=== PATIENT | female | born 1970 | race Hispanic/Latino ===

== ENCOUNTER 2020-10-27 11:00 | Day surgery (SDC) | payer BC ==
[2020-10-27] MEDS ORDERED: Ringers Lactate 1,000 ML IV ONE (12:20)
[2020-10-27 12:42] LABS: Specific Gravity >= 1.030 (1.005-1.030)
[2020-10-27] MEDS ORDERED: LIDOCAINE 1% W/EPI 1:100,000 MDV 20 ML VIAL ONE (12:49)
[2020-10-27] MEDS ORDERED: LIDOCAINE 1% MPF 5 ML VIAL ONE (13:27)
[2020-10-27] MEDS ORDERED: FENTANYL CITR 100 MCG/2 ML ONE ×2 (13:27→13:31)
[2020-10-27] MEDS ORDERED: MIDAZOLAM HCL 2 MG/2 ML INJ ONE ×2 (13:27→13:31)
[2020-10-27] MEDS ORDERED: propofoL 200 MG/20 ML VIAL IV ONE ×2 (13:27→13:30)
[2020-10-27] MEDS ORDERED: dexAMETHasone 10 MG/ML VIAL ONE ×2 (13:31→14:02)
[2020-10-27] MEDS ORDERED: KETOROLAC 30 MG/ML INJ ONE ×2 (13:31→14:02)
[2020-10-27] MEDS ORDERED: ONDANSETRON 4 MG/2 ML VIAL ONE ×2 (13:31→14:14)
[2020-10-27] MEDS ORDERED: LIDOCAINE 2% MPF 5 ML VIAL ONE (13:31)
[2020-10-27] MEDS ORDERED: LIDOCAINE 1% MPF 30 ML VIAL ONE (13:58)
[2020-10-27 15:13] VITALS: BP 118/61; TEMP 97.2
[2020-10-27] MEDS ORDERED: HYDROCODONE/APAP 5/325 MG TAB ONE (15:35)
[2020-10-27 16:15] VITALS: O2SAT 98
--- NOTE | 2020-10-27 19:43 | OP ---
Date of Procedure: 10/27/2020 Surgeon: Rosy Davis MD Preoperative Diagnosis: History of excessive menstruation, enlarged uterus, thickened endometrium, m orbid obesity. Postoperative Diagnosis: History of excessive menstruation, enlarged uterus, thickened endometrium, morbid obesity and cervical and endometrial polyps. Procedures Performed: Hysteroscopy, endometrial curettage, dilatation and curettage with polypectomy and then cervical polyp removal. Anesthesia: General with LMA. Specimens: Cervical polyp in a separate cup and endometrial curettings, polyp in another. Complications: No complications. Drains: No drains. Condition: Stable. Cervix was found to be high, sounding length was over 13 cm. There was a cervical polyp that was rabago ging that was removed separately. Then hysteroscopy was performed and posterior wall had polypoid en dometrium and a small polyp. All these were scraped and removed with the curette. Indication: The patient is a 50-year-old with history of heavy bleeding, irregular periods, stripe o f 15 mm, known leiomyomata. Plan was to perform a cervical polypectomy, D and C, hysteroscopy at the hospital. Her uterus had 2 fibroids 3.7 and 3.2 cm. Her CA-125 was 26 and she was found to have so me adnexal cysts. She also complained of lower back pain. Her primary care provider had diagnosed h er with the UTI at the time. However, her urine was negative in the office at preop and when she bro ught back another specimen later. So she was consented and taken to the OR. Preoperatively discusse d with the patient. Still has back pain. No acute lower urinary tract symptoms. Procedure In Detail: So she was consented, taken back to the OR, placed in a supine fashion on the o perating table. General anesthesia was given. She was placed in dorsal lithotomy position. Pelvic exam was performed. Speculum was placed to expose the cervix after prep x3 with Betadine was done on the vulva, vagina, and perineum. Then anterior lip held with 2 Allis clamps. Ring forceps was used to grasp the cervical polyp and with twisting the polyp was removed and handed out for pathology. T hen diagnostic SlimLine hysteroscope was used to perform hysteroscopy directly through the cervical c anal and uterine cavity was entered. Thickened posterior wall with polypoid endometrium was seen. A small polyp was noted as well in the posterior wall. Rest of the endometrial cavity was unremarkabl e. Once the scope was removed, the cervix was dilated to 20-English and curettage was performed with a #3 curette. Adequate amount of tissue was sampled and retrieved and this was handed out for perman ent pathology. All the instruments were removed. Instrument and sponge counts were correct. She wa s recovered from anesthesia and taken to PACU in a stable condition. Estimated blood loss was minima l. She is going to follow up with me. We will address her back issues if they are related to her gy necological issues. Otherwise, in the absence of urinary tract infection, I will defer the workup of the back pain to her primary care. JIM/ELLI Voice ID: [id number] Report ID: [id number]
== END 2020-10-27 16:00 | disposition home or self-care (01) ==
LOC: OR 11:00
PROVIDERS: ATTEND Obstetrics & Gynecology
PROC: 0UDB8ZX Extraction of Endometrium, Via Natural or Artificial Opening Endoscopic, Diagnostic (ICD-10-PCS; 2020-10-27)
PROC: 0UBC8ZX Excision of Cervix, Via Natural or Artificial Opening Endoscopic, Diagnostic (ICD-10-PCS; principal; 2020-10-27 13:00)
DX: N84.1 Polyp of cervix uteri (principal); N84.0 Polyp of corpus uteri; N92.1 Excessive and frequent menstruation with irregular cycle; D25.9 Leiomyoma of uterus, unspecified; N83.292 Other ovarian cyst, left side; R19.09 Other intra-abdominal and pelvic swelling, mass and lump; M54.5 Low back pain; Z20.822 Contact with and (suspected) exposure to COVID-19
CPT/HCPCS: 81025; 88305; 58558; U0003; J2704; J2250; J3010; J1100; J7120; J2405 ×2

== ENCOUNTER 2021-08-13 08:09 | Day surgery (SDC) | payer BC ==
[2021-08-13] MEDS ORDERED: NA CHLORIDE 0.9% 1,000 ML ONE (08:28)
[2021-08-13] MEDS ORDERED: propofoL 200 MG/20 ML VIAL IV ONE ×2 (10:10)
[2021-08-13] MEDS ORDERED: GLYCOPYRROLATE 0.2 MG/ML SYR ONE (10:10)
[2021-08-13] MEDS ORDERED: LIDOCAINE 1% MPF 30 ML VIAL ONE (10:10)
[2021-08-13] MEDS ORDERED: ONDANSETRON 4 MG/2 ML VIAL ONE (10:21)
--- NOTE | 2021-08-13 10:57 | ENDO RPT ---
[address], [address] COLONOSCOPY PROCEDURE REPORT EXAM DATE: 08/13/2021 PATIENT NAME: Bethanie Astorga MR #: [id number] BIRTHDATE: 1970 ATTENDING: Patricio Taylor DR STATUS: outpatient SUPERVISOR MECHANIC BOILERMAKING: Lisbet Winchester RN INDICATIONS: The patient is a 50 yr old Female here for a colonoscopy due to colon cancer screening PROCEDURE PERFORMED: Screening Colonoscopy and Colonoscopy MEDICATIONS: Per Anesthesia. ESTIMATED BLOOD LOSS: None CONSENT: The patient understands the risks and benefits of the procedure and understands that these risks include, but are not limited to: sedation, allergic reaction, infection, perforation and/or bleeding. Alternative means of evaluation and treatment include, among others: physical exam, x-rays, and/or surgical intervention. The patient elects to proceed with this endoscopic procedure. DESCRIPTION OF PROCEDURE: During intra-op preparation period all mechanical medical equipment was checked for proper function. Hand hygiene and appropriate measures for infection prevention was taken. Procedure, possible complications, alternatives including, but not limited to possibility of bleeding, perforation, tear, infection, sepsis, need for surgery, need for blood transfusion, were explained to the patient. After the risks, benefits and alternatives of the procedure were thoroughly explained, Informed consent was verified, confirmed and timeout was successfully executed by the treatment team. The patient was placed in the left lateral position. A digital rectal exam was performed and revealed internal hemorrhoids. After appropriate level of anesthesia, the scope was passed. The EC-[id number] ([id number]) endoscope was introduced through the anus and advanced to the cecum, which was identified by both the appendix and ileocecal valve. The quality of the prep was poor. The instrument was then slowly withdrawn as the colon was fully examined. Scope withdrawal time was 10 minutes. COLON FINDINGS: Small internal hemorrhoids were found. The colon mucosa was otherwise normal. Retroflexed views revealed no abnormalities. The scope was then completely withdrawn from the patient and the procedure terminated. ADVERSE EVENTS: There were no complications. IMPRESSIONS: 1. Small internal hemorrhoids 2. The colon mucosa was otherwise normal RECOMMENDATIONS: 1. avoid NSAIDS for 2 weeks 2. fiber rich diet 3. Monitor for any evidence of rectal bleeding. 4. yearly hemoccult starting in 4 years 5. yearly hemoquant 6. hemorrhoidal hygiene 7. increase dietary water RECALL: Return in 5 year(s) for Colonoscopy. Poor Prep Patricio Taylor DR eSigned: Patricio Taylor DR 08/13/2021 10:57 AM cc: CPT CODES: ICD9 CODES: PATIENT NAME: Bethanie AstorgaGasper MR#: [id number]
[2021-08-13 12:25] VITALS: BP 140/74; TEMP 98.4; O2SAT 100
== END 2021-08-13 11:45 | disposition home or self-care (01) ==
LOC: OR 08:09
PROVIDERS: ATTEND Surgery
PROC: 0DJD8ZZ Inspection of Lower Intestinal Tract, Via Natural or Artificial Opening Endoscopic (ICD-10-PCS; principal; 2021-08-13 08:45)
DX: Z12.11 Encounter for screening for malignant neoplasm of colon (principal); K64.8 Other hemorrhoids; Z20.822 Contact with and (suspected) exposure to COVID-19
CPT/HCPCS: 36415; 84703; 82947; 45378; U0003; J2704 ×2; J7030; J2405

== ENCOUNTER 2021-10-12 09:42 | Day surgery (SDC) | payer BC ==
[2021-10-06 13:53] LABS: Urine Appearance SL CLOUDY (Clear); Urine Bilirubin NEGATIVE (Negative); Urine Blood 3+ (Negative); Urine Color DK YELLOW (Yellow); Urine Glucose NEGATIVE (Negative); Urine Microscopic Reflex ORDER UMIC; Urine Protein 1+ (Negative); Urine Specific Gravity 1.025 (1.005-1.030); Urine Urobilinogen 0.2 mg/dL (0.2-1.0)
[2021-10-06 14:03] LABS: Absolute Lymphocytes (CBC) 2.4 K/uL (0.7-4.9); Hematocrit 28.7 % (36.0-45.0); Lymphocytes % 33.3 % (15.3-44.8); MPV 8.2 fL (7.6-11.3); RBC Red Blood Cell Count 3.76 M/uL (3.86-4.86)
[2021-10-06 14:06] LABS: Urine Bacteria 20-50 /HPF (<20); Urine RBC >50 /HPF (NONE SEEN)
[~2021-10-12 09:42] MED LIST: Ringers Lactate 1,000 ML IV SCH; SCOPOLAMINE HYDROBROMIDE PATCH TD SCH
[2021-10-12] MEDS ORDERED: NA CHLORIDE 0.9% 1,000 ML ONE ×3 (10:11→18:00)
[2021-10-12 10:19] LABS: Specific Gravity 1.025 (1.005-1.030)
[2021-10-12] MEDS ORDERED: SCOPOLAMINE HYDROBROMIDE PATCH TD ONE (10:42)
[2021-10-12] MEDS ORDERED: CEFAZOLIN/SWI 2gm 0 GM/0 ML SYR ONE (11:23)
[2021-10-12] MEDS ORDERED: DIAZEPAM 5 MG TABLET ONE (11:25)
[2021-10-12] MEDS ORDERED: CEFAZOLIN/SWI 2gm 2 GM/20 ML SYR ONE (11:27)
[2021-10-12] MEDS ORDERED: CEFAZOLIN SODIUM 1 GM/VIAL ONE (11:27)
[2021-10-12] MEDS ORDERED: KETAMINE HCL 500 MG/5 ML VIAL ONE (11:40)
[2021-10-12] MEDS ORDERED: FENTANYL CITR 250 MCG/5 ML ONE (11:41)
[2021-10-12] MEDS ORDERED: LIDOCAINE 1% MPF 5 ML VIAL ONE (11:41)
[2021-10-12] MEDS ORDERED: NS 0.9% VIAL 10 ML ONE (11:41)
[2021-10-12] MEDS ORDERED: MIDAZOLAM HCL 2 MG/2 ML INJ ONE (11:41)
[2021-10-12] MEDS ORDERED: propofoL 200 MG/20 ML VIAL IV ONE (11:41)
[2021-10-12] MEDS ORDERED: dexAMETHasone 10 MG/ML VIAL ONE (11:41)
[2021-10-12] MEDS ORDERED: ROCURONIUM 50 MG/5 ML VIAL IV ONE (11:42)
[2021-10-12] MEDS ORDERED: ONDANSETRON 4 MG/2 ML VIAL ONE ×2 (11:56→16:42)
[2021-10-12] MEDS ORDERED: EPHEDRINE SULF 50 MG/ML VIAL ONE (12:39)
[2021-10-12] MEDS: BUPIVACAINE 0.25% PF 10 ML VIAL ONE ×2 (12:41→12:45)
[2021-10-12] MEDS ORDERED: VECURONIUM 10 MG/VIAL IV ONE (13:55)
[2021-10-12] MEDS ORDERED: Phenylephrine HCl 10 MG/ML 1 ML VIAL ONE (14:09)
[2021-10-12] MEDS ORDERED: Ringers Lactate 1,000 ML IV ONE (14:29)
[2021-10-12] MEDS: Ringers Lactate 1,000 ML IV ONE ×2 (15:04→15:13)
[2021-10-12] MEDS ORDERED: MORPHINE 10 MG/ML VIAL ONE (15:14)
[2021-10-12] MEDS ORDERED: METHYLENE BLUE 0.5% 10 ML AMP ONE (15:50)
[2021-10-12] MEDS ORDERED: GLYCOPYRROLATE 0.2 MG/ML SYR ONE (15:56)
[2021-10-12] MEDS ORDERED: IBUPROFEN 200 MG PO PRN (15:58)
[2021-10-12] MEDS ORDERED: clonazePAM 0.5 MG TAB PO PRN (15:58)
[2021-10-12] MEDS ORDERED: PROMETHAZINE INJ 25 MG/ML AMP IV PRN (15:59)
[2021-10-12] MEDS ORDERED: HYDROCODONE/APAP 5/325 MG TAB PO PRN (15:59)
[2021-10-12] MEDS ORDERED: IBUPROFEN 200 MG TAB PO PRN (15:59)
[2021-10-12] MEDS ORDERED: MEPERIDINE HCL 25 MG/ML SYR IM PRN (15:59)
[2021-10-12] MEDS ORDERED: NEOSTIGMINE 1 MG/ML -5 ML ONE (16:01)
--- NOTE | 2021-10-12 16:07 | P.BOP ---
Preoperative diagnosis: AUB-L/O, LLQ pain Postoperative diagnosis: bilateral tubal endometriosis, left hydrosalpinx, bladder/ C.sX4 adhesions Primary procedure: TLH/BSO,vg morcellation,C/s scarLOAbladder adhesions,Endometriosis excision Secondary procedure: cystoscopy, guidewire on left insertion and removal Residential Subcontractor: Lolly Cobb Estimated blood loss: 100 Specimen: uterus tubes ovaries, endometriosis both peritubal areas Findings: scar omentum bladder, uterus, L hydrosalpinx, patent ureters, 5ports Anesthesia: General Complications: None Transferred to: Recovery Room Condition: Good
[2021-10-12] MEDS ORDERED: ALBUTEROL 2.5 MG/3 ML NEB SOL ONE (16:22)
[2021-10-12] MEDS ORDERED: MEPERIDINE HCL 25 MG/ML SYR ONE (16:42)
[2021-10-12 17:11] VITALS: O2SAT 100
[2021-10-12] MEDS ORDERED: HYDROCODONE/APAP 5/325 MG TAB ONE (18:42)
[2021-10-12 18:49] VITALS: BP 125/58; TEMP 97.7
[2021-10-12] MEDS ORDERED: METFORMIN ER 500 MG TAB PO SCH (21:00)
[2021-10-12] MEDS ORDERED: HOME MED 1 EA UNK (Dextroamphetamine/Amphetamine [Adderall 20 Mg Tablet] 20 MG Tablet) PO SCH (21:00)
[2021-10-13] MEDS ORDERED: HOME MED 1 EA UNK (Multivitamin [Multivitamin] Tablet) PO SCH (09:00)
[2021-10-13] MEDS ORDERED: HOME MED 1 EA UNK (Lisinopril/Hydrochlorothiazide [Lisinopril-Hctz 20-25 Mg Tab] Tablet) PO SCH (09:00)
[2021-10-13] MEDS ORDERED: MONTELUKAST 10 MG TAB PO SCH (09:00)
--- NOTE | 2021-10-14 07:03 | OP ---
Date of Procedure: 10/12/2021 Surgeon: Rosy Davis MD Legal Nurse Consultant: Lolly Morrell. Preoperative Diagnoses: AUB-L/O, left lower quadrant pain. Postoperative Diagnoses: AUB-L/O, left lower quadrant pain, bilateral tubal endometriosis, left hydr osalpinx, bladder and scar adhesions to very significant level. Procedures Performed: 1.Total laparoscopic hysterectomy, bilateral salpingo-oophorectomy, vaginal morcellation due to the size of the uterus. 2.Lysis of bladder and scar uterine adhesions to the anterior abdominal wall and endometrio tic adhesions of the tube and omentum. 3.Endometriosis excision. 4.Cystoscopy and guidewire insertion and removal on the left ureter. Anesthesia: General endotracheal. Estimated Blood Loss: 100. Urine Output: 400. Specimens: Uterus, tubes, ovaries, endometriosis with both paratubal areas. Complications: No complications. Drains: No drains. Condition: The patient's condition is stable. Findings: Scar of the omentum and the bladder to the anterior abdominal wall, omentum to the uterus as well as the anterior abdominal wall, and then bladder to lower segment of the uterus. Left hydros alpinx and endometriosis and endometrioma inside the tube and endometriotic implant in the paratubal area, which was excised along with the left tube and ovary. The patient was recovered from anesthesi a in the operating room and taken to the recovery room in stable condition. Indications: The patient is a 51-year-old female, presented a year ago with heavy bleeding, signific ant morbid obesity. No atypia or malignancy were seen after endometrial sampling. She was treated i n a conservative fashion, including using a Mirena IUD, which spontaneously was expelled. Her bleedi ng was uncontrolled. She has lost at least 35 pounds since kept it off. Despite this, th ere has been no change in her bleeding and her left lower quadrant pain was very bothersome, so she w as consented for the above procedures fully understanding that her 4 sections were high risk for surgery and her morbidity with her body mass index. Procedure In Detail: After informed consent was verified, 3 g of Ancef were given as she only had hi ves with penicillin. She tolerated the Ancef very well. She was placed in a supine fashion on the operating table. Gener al anesthesia was given. She was placed in dorsal lithotomy position. Pelvic exam was performed. U terus was found to be significantly enlarged and fairly . No adnexal masses were easily pa lpable. She definitely had a large posterior wall defect, however, no plans to address this at this time. After she was placed in dorsal lithotomy position, using Zheng stirrups, abdomen, vulva, vagina, and perineum were prepped and draped in a sterile fashion. A Payton was placed to drain the bladder and a ttached for retrograde filling. A large VCare introduced into the uterus and fixed in place. A 1 cm infraumbilical incision made with a scalpel using the open laparoscopy technique. Fascia was incised, tagged with 0 Vicryl sutures. Peritoneum entered sharply. S-retractors were placed and Has son introduced. After adequate insufflation, site of entry was checked, unremarkable. Upper abdomin al surface was unremarkable as well. The patient was placed in Trendelenburg. A 5 port in the left lower quadrant was placed after injecting with 0.25% Marcaine. The adhesions of the omentum to the a nterior abdominal wall, the uterus to the anterior abdominal wall were all taken down. This took at least 45 minutes of this case to get started, placing the ports, taking the adhesions down, and clear ing the uterus of all adhesions, taking the omental adhesions down as well as the adhesions to the le ft tube and ovary. A 10 suprapubic, 5 right lower quadrant and 5 left upper quadrant, ports were placed under direct vis ion. Since the height of the uterus was significantly elevated, the left upper quadrant port was significa ntly useful. The round ligament was taken down after the broad ligament was opened up and the bladde r flap was also connected after taking the adhesions down the way much right there on the bladder fla p. The round ligament was taken down. Then, the dissection was carried on the left lateral wall paralle l to the IP. The tubal dilation which almost appeared to be a paratubal cyst, but this actually a hy drosalpinx, was drained, has clear fluid in it. Then, the tube and the ovary were isolated on the pe dicle and taken down with the help of the LigaSure. Once these were done, the endometriosis was exci sed. The tube and ovary were from the uterus and they were tied with a 0 Vicryl loop tie a nd placed in the right lower quadrant. Endometriosis that was attached to the round ligament was also included by taking the round ligament freely laterally, so this could be included with the specimen. Then, the posterior part of the utero -ovarian ligament was taken out obviously and then the posterior broad ligament was dissected. Caref ully, the ureter was identified as well as the vessels on lateral aspect by dissecting the broad liga ment. Then, the peritoneum was taken down all the way to the area of the uterosacral on the posterio r cuff and the vessels were cauterized immediately lateral to the uterus, right on the wall of the ut erus, staying close to the wall. Dissection was performed on the opposite side, isolating the round ligament, opening up, taken down t he tube and handed off for permanent pathology. Then, utero-ovarian ligament was taken down. Then, the round ligament was taken down. The anterior broad ligament connected after taking down the adhes ions of the bladder from her scar to expose the anterior wall of the vagina and then, the bl adder was dissected down inferiorly by sharp dissection and bipolar cautery with the LigaSure. The a nterior cup was well visualized. The vessels were isolated. Posterior peritoneum taken down to the right uterosacral, then vessels were taken down in a systematic fashion using the LigaSure and the cu rved tip bipolar. Then, cardinal ligaments were taken down. Then, on the opposite side, went over t o take the vessels down. There was bleeding from the uterine vessels, which was then cauterized appr opriately in a timely fashion without allowing much bleeding. Then, the [place] bipolar was used to cauterize the lateral margin of the uterine artery, which had excellent hemostasis. After this was done, the cardinal ligaments were taken down. The cup was exposed. Then, circumferential colpotomy was performed with a monopolar hook blade and the specimen was detached. The specimen was retrieved vaginally using clamps, baby Conway, and a speculum. Using a Y ankauer suction to get the blood from the specimen. The specimen was morcellated with a 10 blade pro gressively till it had completely come out. Once it was handed out, vaginal closure was placed. After gloves and gowns were changed, restarted back at the abdominal level. Then, the vaginal cuff w as closed with simple 0 Vicryl sutures at both ends, tied lateral to the cuff, and then 3 figures-of- eight in the center with excellent position and closure including the distal uterosacral ligaments as best as possible. The ovary and the tube were removed before the 3 center stitches were placed. The right ovary was di ssected and isolated all the pedicle and removed. All the right ovary, left tube and ovary were all pulled out through the vaginal canal. Then, the 3 center sutures with [id number]-ez-qgqqo 0 Vicryl were done and then the closure wa s complete with excellent hemostasis. No evidence of electrical, mechanical, or thermal injury to th e ureters. Thorough irrigation and suction were performed. All pedicles hemostatic. All the trocar s removed under direct vision, injected with local at the umbilical site after the umbilical fascia w as closed with the help of 0 Vicryl sutures that were tagged on the sides, tied to each other. A kiera p stitch was placed in the suprapubic area as it was very difficult to get down that far down to clos e the fascia. All the skin incisions closed with the help of 3-0 chromic sutures and Steri-Strips placed. Cystoscopy performed with a 17-Wolof sheath, 30-degree lens, normal saline. Excellent jets of urine from the right ureteric orifice and the left was very sluggish, so a guidewire was placed to advance to 15 cm very easily. Then, as it was pulled out, there was excellent jet of urine from here. The patient had a urine output of 400 cc during the case. The bladder was then drained. The vagina was cleaned up. labia majora had a laceration at the time of retraction for vaginal morcellat ion. This was closed with the help of 4-0 chromic kzcgaa-rj-wdbkd stitch. Excellent hemostasis. Instrument, needle, and sponge counts x3 were correct at the end of the case. The patient tolerated the procedure well. She was recovered from anesthesia and taken to PACU in stable condition. All e procedure and findings were debriefed to the family, her daughter, her , and son. She has a followup appointment in 1 week. JIM/ELLI Voice ID: [id number] Report ID: [id number]
== END 2021-10-12 19:30 | disposition home or self-care (01) ==
LOC: OR 09:42
PROVIDERS: ATTEND Obstetrics & Gynecology
PROC: 0UT24ZZ Resection of Bilateral Ovaries, Percutaneous Endoscopic Approach (ICD-10-PCS; 2021-10-12)
PROC: 0UT74ZZ Resection of Bilateral Fallopian Tubes, Percutaneous Endoscopic Approach (ICD-10-PCS; 2021-10-12)
PROC: 0UB44ZZ Excision of Uterine Supporting Structure, Percutaneous Endoscopic Approach (ICD-10-PCS; 2021-10-12)
PROC: 0TNB4ZZ Release Bladder, Percutaneous Endoscopic Approach (ICD-10-PCS; 2021-10-12)
PROC: 0DNW4ZZ Release Peritoneum, Percutaneous Endoscopic Approach (ICD-10-PCS; 2021-10-12)
PROC: 0HQAXZZ Repair Inguinal Skin, External Approach (ICD-10-PCS; 2021-10-12)
PROC: 0UT94ZZ Resection of Uterus, Percutaneous Endoscopic Approach (ICD-10-PCS; principal; 2021-10-12 11:30)
DX: N92.1 Excessive and frequent menstruation with irregular cycle (principal); D25.9 Leiomyoma of uterus, unspecified; E11.9 Type 2 diabetes mellitus without complications; N39.3 Stress incontinence (female) (male); N83.292 Other ovarian cyst, left side; I10 Essential (primary) hypertension; N83.8 Other noninflammatory disorders of ovary, fallopian tube and broad ligament; N70.11 Chronic salpingitis; N88.8 Other specified noninflammatory disorders of cervix uteri; S31.41XA Laceration without foreign body of vagina and vulva, initial encounter; N99.71 Accidental puncture and laceration of a genitourinary system organ or structure during a genitourinary system procedure; Y93.89 Activity, other specified; Y92.234 Operating room of hospital as the place of occurrence of the external cause; Z20.822 Contact with and (suspected) exposure to COVID-19
CPT/HCPCS: 87088; 85025; 87086; 36415; 86900; 86850; 81025; 86901; 82947; 88307; 83036; 58573; 58662; 53899; 49329; 12001; U0003; J2704; J2370; J2250; J3010; J1100; J2175; J2710; J0690 ×2; J7120 ×2; J7030 ×3; J2405 ×2; 81003; 81015

== ENCOUNTER 2021-11-23 16:46 | Emergency (ER) | payer BC ==
--- OUTSIDE RECORDS SUMMARY | 2021-11-23 16:48 | XMS REPORT | Continuity of Care Document ---
:1970 Author Organization [facility] t Address [address] [place] [address] Dr. Espinosa [address] [place] [address] Care Team Providers Name Role Phone Leisa URRUTIA Attending Clinician Unavailable HENNY Attending Clinician Unavailable Elia LANIER, K.H. Attending Clinician Payers Payer Name Policy Type Policy Number Effective Date Expiration Date S [facility] [id number] 2017 00:00:00 Problems This patient has no known problems. Allergies, Adverse Reactions, Alerts Allergy Allergy Status Severity Reaction(s) Onset Inactive Treating Comm ents Source Name Type Date Date Clinician [facility] Active Hives [facility] 01-04 ity of 00:00: [address] Medications This patient has no known medications. Procedures This patient has no known procedures. Encounters Start End Encounter Admission Attending Care Care Encounter Source Date/Time Date/Time Type Type Clinicians Facility Department ID 2020-12-26 2020-12-26 Outpatient [facility] [id number] [facility]:15[id number] 2020-12-26 Outpatient Radha URRUTIA [facility] [id number] Univers 08:15:00 08:15:00 ARABELLA [facility] 2020-12-19 2020-12-19 Outpatient [facility] [id number] Univers 08:15:00 08:15:00 [id number] [facility] 2020-11-28 2020-11-28 Outpatient [facility] [id number] Univers 08:00:00 08:00:00 [id number] [facility] 2020-11-28 2020-11-28 Outpatient R RENAN [facility] [id number] Univers 08:00:00 08:00:00 ARABELLA [facility] 2020-04-15 2020-04-15 Outpatient Radha INMAN [facility] [id number] Univers 15:00:00 15:00:00 MONICA [id number] [facility] 2020-04-15 2020-04-15 Outpatient Radha INMAN [facility] [id number] Univers 15:00:00 15:00:00 MONICA [facility] 2020-03-02 2020-03-02 Outpatient Radha INMAN [facility] [id number] Univers 15:30:00 15:30:00 MONICA [id number] [facility] 2020-03-02 2020-03-02 Outpatient Radha INMAN [facility] [id number] Univers 15:30:00 15:30:00 MONICA [facility] 2020-01-20 2020-01-20 Outpatient Radha INMAN [facility] [id number] Univers 09:30:00 09:30:00 [facility] 2019-03-08 2019-03-08 [id number] 14:32:41 15:50:49 Visit Jenna Dumont [id number] Avella [id number] Leslie [phone] [facility]9 Building Results This patient has no known results.
[2021-11-23 18:19] LABS: Absolute Lymphocytes (CBC) 2.4 K/uL (0.7-4.9); Hematocrit 33.7 % (36.0-45.0); Lymphocytes % 32.1 % (15.3-44.8); MPV 8.4 fL (7.6-11.3); RBC Red Blood Cell Count 4.78 M/uL (3.86-4.86)
[2021-11-23 18:20] LABS: Protime INR 1.1
[2021-11-23 18:35] LABS: ALT/SGPT 44 U/L (12-78); Albumin 3.6 g/dL (3.4-5.0); Alkaline Phosphatase 100 U/L (45-117); BUN Blood Urea Nitrogen 12 mg/dL (7-18); Bicarbonate 28 mmol/L (21-32); Bilirubin Total 0.3 mg/dL (0.2-1.0); Glucose Level 125 mg/dL (74-106); Protein, Total 8.1 g/dL (6.4-8.2); Sodium Level 136 mmol/L (136-145); Troponin High Sensitivity 3.2 pg/mL (<58.9)
[2021-11-23 18:42] LABS: AST/SGOT 28 U/L (15-37); Bilirubin Direct < 0.1 mg/dL (0-0.2); NT PRO-BNP < 5 pg/mL (<125); Potassium 3.4 mmol/L (3.5-5.1)
--- NOTE | 2021-11-23 18:54 | RAD REPORT ---
EXAM DESCRIPTION: RAD - Chest Single View - 11/23/2021 6:25 pm CLINICAL HISTORY: CHEST PAIN COMPARISON: Two view chest April 2017 TECHNIQUE: AP portable chest image was obtained 11/23/2021 6:25 pm . FINDINGS: No acute lung parenchymal process. Interstitial pattern matches comparison when adjusting for differences between under penetrated portable technique and prior two view imaging. Failure and v olume overload are not suspected. Heart and vasculature are normal. No measurable pleural effusion an d no pneumothorax. No acute bony abnormality seen. No acute aortic findings suspected. IMPRESSION: No acute cardiopulmonary process.
--- NOTE | 2021-11-23 19:40 | ER ---
Nurse's Notes [facility] Name: Bethanie Astorga Age: 51 yrs Sex: Female : 1970 Arrival Date: 11/23/2021 Time: 16:47 Bed 19 Private MD: James Lo E Diagnosis: Chest pain, unspecified Presentation: 11/23 17:35 Chief complaint: Patient states: had a hysterectomy a couple weeks ago, yesterday both iw her hands were numb off and on all day, this morning she woke up and her head was spinning and she felt nauseous and light headed , has also been having chest pains yesterday. Coronavirus screen: At this time, the client does not indicate any symptoms associated with coronavirus-19. Ebola Screen: Patient negative for fever greater than or equal to 101.5 degrees Fahrenheit, and additional compatible Ebola Virus Disease symptoms Patient denies exposure to infectious person. Patient denies travel to an Ebola-affected area in the 21 days before illness onset. No symptoms or risks identified at this time. Initial Sepsis Screen: Does the patient meet any 2 criteria? No. Patient's initial sepsis screen is negative. Does the patient have a suspected source of infection? No. Patient's initial sepsis screen is negative. Risk Assessment: Do you want to hurt yourself or someone else? Patient reports no desire to harm self or others. Onset of symptoms was November 22, 2021. 17:35 Method Of Arrival: Ambulatory iw 17:35 Acuity: JONO 3 iw Historical: - Allergies: 17:37 PENICILLINS; iw - PMHx: 17:37 Hypertensive disorder; Anxiety; iw - Immunization history:: Adult Immunizations up to date. - Social history:: Smoking status: Patient denies any tobacco usage or history of. Screenin:58 Abuse screen: Denies threats or abuse. Nutritional screening: No deficits noted. ag7 Tuberculosis screening: No symptoms or risk factors identified. Fall Risk No fall in past 12 months (0 pts). No secondary diagnosis (0 pts). IV access (20 points). Ambulatory Aid- None/Bed Rest/Nurse Assist (0 pts). Gait- Normal/Bed Rest/Wheelchair (0 pts) Mental Status- Oriented to own ability (0 pts). Total Mello Fall Scale indicates No Risk (0-24 pts). Assessment: 19:57 General: Appears in no apparent distress. comfortable, Behavior is calm, cooperative, ag7 appropriate for age. Pain: Complains of pain in mid-sternal area Pain does not radiate. Pain currently is 5 out of 10 on a pain scale. Quality of pain is described as pressure, Pain began suddenly, Is continuous. Neuro: Level of Consciousness is awake, alert, obeys commands, Oriented to person, place, time, situation, Appropriate for age. Cardiovascular: Heart tones S1 S2 present muffled Capillary refill < 3 seconds in bilateral fingers Patient's skin is warm and dry. Respiratory: Airway is patent Trachea midline Respiratory effort is even, unlabored, Respiratory pattern is regular, symmetrical, Breath sounds are clear bilaterally. Vital Signs: 17:35 BP 121 / 78; Pulse 87; Resp 18; Temp 97.8; Pulse Ox 96% on R/A; Weight 101.15 kg; iw Height 5 ft. 0 in. (152.40 cm); 17:35 Body Mass Index 43.55 (101.15 kg, 152.40 cm) iw ED Course: 16:47 Patient arrived in ED. as 16:48 James Lo MD is Private Physician. as 16:48 Rosy Davis MD is Private Physician. as 17:37 Triage completed. iw 17:37 Arm band placed on. iw 17:39 Chepe Smith NP is PHCP. pm1 17:39 Zuleyma Crespo MD is Attending Physician. pm1 18:03 Patient has correct armband on for positive identification. Bed in low position. Call [facility] light in reach. Side rails up X2. Warm blanket given. alarm security or surveillance monitor on. Pulse ox on. NIBP on. 18:03 Basic Metabolic Panel Sent. 5 18:03 CBC with Diff Sent. 5 18:03 LFT's Sent. 5 18:03 Magnesium Sent. 5 18:03 NT PRO-BNP Sent. 5 18:03 PT-INR Sent. 5 18:03 Troponin HS Sent. 5 18:03 Initial lab(s) drawn, by me, sent to lab. EKG done, by ED staff, reviewed by Chepe Smith NP. 18:27 XRAY Chest (1 view) In Process Unspecified. EDMS 19:29 Tita Snyder, RN is Primary Nurse. ag7 19:59 No provider procedures requiring assistance completed. IV discontinued, intact, ag7 bleeding controlled, No redness/swelling at site. Pressure dressing applied. Patient maintains SpO2 saturation greater than 95% on room air. Administered Medications: 19:56 Drug: Potassium Effervescent Tablet 50 mEq Route: PO; ag7 20:00 Follow up: Response: No adverse reaction; Medication administered at discharge. ag7 Outcome: 19:40 Discharge ordered by MD. pm1 19:59 Discharged to home ambulatory. ag7 19:59 Condition: stable 19:59 Discharge instructions given to patient, Instructed on discharge instructions, follow up and referral plans. Demonstrated understanding of instructions, follow-up care. 20:00 Patient left the ED. ag7 Signatures: Dispatcher [employer] Daksha Jorge Irene, AFUA CAAL iw Chepe Smith NP LITIGATION PARTNER pm1 Leanne Silva [facility] Tita Snyder, AFUA RN ag7
--- NOTE | 2021-11-23 19:40 | EDPHYS ---
Physician Documentation [facility] Name: Bethanie Astorga Age: 51 yrs Sex: Female : 1970 Arrival Date: 11/23/2021 Time: 16:47 Bed 19 Private MD: James Lo E ED Physician Zuleyma Crespo HPI: 11/23 17:57 This 51 yrs old Female presents to ER via Ambulatory with complaints of Chest pm1 Tightness, Numbness, Shortness Of Breath, Dizziness, Nausea. 17:57 The patient or guardian reports chest pain that is located primarily in the mid-sternal pm1 area. 17:57 Onset: 2 week(s) ago, Since full hysterectomy. The pain does not radiate. Associated pm1 signs and symptoms: Pertinent positives: Numbness and tingling to bilateral hands yesterday and that has resolved.. The chest pain is described as a pressure. Duration: The patient or guardian reports multiple episodes. Modifying factors: The symptoms are alleviated by nothing. the symptoms are aggravated by nothing. Severity of pain: in the emergency department the pain has improved. The patient has been recently seen by a physician: with different complaint(s), Full hysterectomy 2 weeks ago. 51-year-old patient presented to ER with complaints of chest pain numbness and tingling to bilateral hands ongoing for roughly 2 weeks. Tingling and numbness to hands resolved yesterday. Patient now is reporting chest pain that feels like pressure. Patient reports last time that she felt this sensation her potassium was low. Historical: - Allergies: 17:37 PENICILLINS; iw - PMHx: 17:37 Hypertensive disorder; Anxiety; iw - Immunization history:: Adult Immunizations up to date. - Social history:: Smoking status: Patient denies any tobacco usage or history of. ROS: 17:57 Constitutional: Negative for fever, chills, and weight loss. pm1 17:57 Abdomen/GI: Negative for abdominal pain, nausea, vomiting, diarrhea, and constipation, Back: Negative for injury and pain, MS/Extremity: Negative for injury and deformity, Skin: Negative for injury, rash, and discoloration. 17:57 Cardiovascular: Positive for chest pain, Negative for edema, orthopnea, palpitations. 17:57 Respiratory: Positive for shortness of breath, Negative for cough. 17:57 Neuro: Positive for dizziness, Numbness and tingling to bilateral hands, resolved yesterday. 17:57 All other systems are negative. pm1 Exam: 17:57 Constitutional: This is a well developed, well nourished patient who is awake, alert, pm1 and in no acute distress. Head/Face: Normocephalic, atraumatic. 17:57 Back: No spinal tenderness. No costovertebral tenderness. Full range of motion. Skin: Warm, dry with normal turgor. Normal color with no rashes, no lesions, and no evidence of cellulitis. MS/ Extremity: Pulses equal, no cyanosis. Neurovascular intact. Full, normal range of motion. 17:57 Cardiovascular: Exam negative for acute changes, Rate: normal, Rhythm: regular, Pulses: no pulse deficits are appreciated, Heart sounds: normal. 17:57 Respiratory: Exam negative for acute changes, respiratory distress, shortness of breath, Breath sounds: are clear throughout. 17:57 Neuro: Exam negative for acute changes, Orientation: is normal, Mentation: is normal, Motor: is normal, moves all fours. Vital Signs: 17:35 BP 121 / 78; Pulse 87; Resp 18; Temp 97.8; Pulse Ox 96% on R/A; Weight 101.15 kg; iw Height 5 ft. 0 in. (152.40 cm); 17:35 Body Mass Index 43.55 (101.15 kg, 152.40 cm) iw MDM: 17:45 Patient medically screened. pm1 19:27 Data reviewed: vital signs. Data interpreted: Pulse oximetry: on room air is 96 %. pm1 Interpretation: normal. Counseling: I had a detailed discussion with the patient and/or guardian regarding: the historical points, exam findings, and any diagnostic results supporting the discharge/admit diagnosis, lab results, radiology results, the need for outpatient follow up, to return to the emergency department if symptoms worsen or persist or if there are any questions or concerns that arise at home. 11/23 17:57 Order name: Basic Metabolic Panel; Complete Time: 18:44 pm1 11/23 17:57 Order name: CBC with Diff; Complete Time: 18:26 pm1 11/23 17:57 Order name: LFT's; Complete Time: 18:44 pm1 11/23 17:57 Order name: Magnesium; Complete Time: 18:44 pm1 11/23 17:57 Order name: NT PRO-BNP; Complete Time: 18:44 pm1 11/23 17:57 Order name: PT-INR; Complete Time: 18:22 pm1 11/23 17:57 Order name: Troponin HS; Complete Time: 18:44 pm1 11/23 17:57 Order name: XRAY Chest (1 view); Complete Time: 19:13 pm1 11/23 17:57 Order name: EKG; Complete Time: 17:58 pm1 11/23 17:57 Order name: Cardiac monitoring; Complete Time: 18:03 pm1 11/23 17:57 Order name: EKG - Nurse/Tech; Complete Time: 18:03 pm1 11/23 17:57 Order name: IV Saline Lock; Complete Time: 18:03 pm1 11/23 17:57 Order name: Labs collected and sent; Complete Time: 18:03 pm1 11/23 17:57 Order name: O2 Per Protocol; Complete Time: 19:51 pm1 11/23 17:57 Order name: O2 Sat Monitoring; Complete Time: 19:51 pm1 Administered Medications: 19:56 Drug: Potassium Effervescent Tablet 50 mEq Route: PO; ag7 20:00 Follow up: Response: No adverse reaction; Medication administered at discharge. ag7 Disposition Summary: 11/23/21 19:40 Discharge Ordered Location: Home pm1 Problem: new pm1 Symptoms: have improved pm1 Condition: Stable pm1 Diagnosis - Chest pain, unspecified pm1 Followup: pm1 - With: Emergency Department - When: As needed - Reason: Worsening of condition Followup: pm1 - With: Private Physician - When: 2 - 3 days - Reason: Recheck today's complaints, Continuance of care, Re-evaluation by your physician Discharge Instructions: - Discharge Summary Sheet pm1 - Nonspecific Chest Pain, Adult pm1 Forms: - Medication Reconciliation Form pm1 - Thank You Letter pm1 - Antibiotic Education pm1 - Prescription Opioid Use pm1 Addendum: 11/25/2021 18:40 Co-signature as Attending Physician, Zuleyma holbrook a2 Signatures: Dispatcher [employer] Yue Jeff RN RN iw Marinas, Patrick, ISABEL UTILITY DRIVER pm1 Zuleyma Crespo MD MD ma2 Tita Snyder, RN RN ag7
[2021-11-23] MEDS ORDERED: POTASSIUM 25 MEQ EFFERV TAB ONE (19:52)
[2021-11-23 23:03] VITALS: BP 121/78; TEMP 97.8; O2SAT 96
--- NOTE | 2021-11-24 08:08 | EKG ---
Test Date: 2021-11-23 Test Time: 17:43:25 Regional Training Manager: VICKIE MEASUREMENT RESULTS: Intervals: Rate: 80 WA: 162 QRSD: 82 QT: 384 QTc: 442 [place]: P: 64 WA: 162 QRS: 62 T: 60 INTERPRETIVE STATEMENTS: Normal sinus rhythm Normal ECG No previous ECG available for comparison Electronically Signed On 11-24-21 08:06:54 CDT by Alfie Srivastava
== END 2021-11-23 20:00 | disposition home or self-care (01) ==
LOC: ER 16:46
DX: R07.9 Chest pain, unspecified (principal); I10 Essential (primary) hypertension; F41.9 Anxiety disorder, unspecified; Z88.0 Allergy status to penicillin
CPT/HCPCS: 36415; 71045; 80048; 80076; 83735; 83880; 84484; 85025; 85610; 93005; 99285

== ENCOUNTER 2022-10-12 21:03 | Emergency (ER) | payer BC ==
--- OUTSIDE RECORDS SUMMARY | 2022-10-12 21:07 | XMS REPORT | Continuity of Care Document ---
:1970 Author Organization [facility] t Address [address] [place] [address]. [address] [place] [address] Care Team Providers Name Role Phone ARABELLA URRUTIA Attending Clinician Unavailable MONICA INMAN Attending Clinician Unavailable Elia LANIER, Jenna Ybarra Attending Clinician Payers Payer Name Policy Type Policy Number Effective Date Expiration Date S [facility] [id number] 2017 00:00:00 Problems This patient has no known problems. Allergies, Adverse Reactions, Alerts Allergy Allergy Status Severity Reaction(s) Onset Inactive Treating Comm ents Source Name Type Date Date Clinician [facility] Active Hives [facility] IN [facility] 01-04 ity of 00:00: [address] Social History Social Habit Start Date Stop Date Quantity Comments Source Sex Assigned At [birth year] [facility] kes 00:00:00 00:00:00 [facility] Medications This patient has no known medications. Procedures This patient has no known procedures. Encounters Start End Encounter Admission Attending Care Care Encounter Source Date/Time Date/Time Type Type Clinicians Facility Department ID 2020-12-26 2020-12-26 Outpatient Radha URRUTIA [facility] [id number] [facility] 08:15:00 08:15:00 ARABELLA [facility] 2020-11-28 2020-11-28 Outpatient Radha URRUTIA [facility] [id number] [facility] 08:00:00 08:00:00 ARABELLA [facility] 2020-04-15 2020-04-15 Outpatient [facility] [id number] [facility] 15:00:00 15:00:00 [facility] 2020-03-02 2020-03-02 [facility] [id number] [facility] 15:30:00 15:30:00 [facility] 2020-01-20 2020-01-20 [facility] [id number] [facility] 09:30:00 09:30:00 [facility] 2019-03-08 2019-03-08 [facility] [id number] 14:32:41 15:50:49 Visit Jenna Dumont [id number] Chanell [id number] Leslie [phone] nal 059 Building Results This patient has no known results.
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
[2022-10-12 23:34] VITALS: BP 129/69; O2SAT 98
[2022-10-12 23:35] VITALS: TEMP 98.8
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
== END 2022-10-12 23:14 | disposition home or self-care (01) ==
LOC: ER 21:03
DX: S06.0X0A Concussion without loss of consciousness, initial encounter (principal); S16.1XXA Strain of muscle, fascia and tendon at neck level, initial encounter; S40.012A Contusion of left shoulder, initial encounter
CPT/HCPCS: 70450; 72125; 99283

== ENCOUNTER 2024-02-02 22:22 | Emergency (ER) | payer OTHER ==
[2024-02-03] MEDS ORDERED: FLUORESCEIN SODIUM 1 MG/WRAP ONE (01:08)
[2024-02-03] MEDS ORDERED: TETRACAINE HCL 0.5% 4ML OPTH ONE (01:09)
--- NOTE | 2024-02-03 02:14 | ER ---
Nurse's Notes [facility] Name: Roxy Astorga Age: 53 yrs Sex: Female : 1970 Arrival Date: 02/02/2024 Time: 22:22 Bed 12 Private MD: Diagnosis: Injury of conjunctiva and corneal abrasion without foreign body;Injury of conjunctiva and corneal abrasion without foreign body, left eye Presentation: 02/01 23:12 Chief complaint: Patient states: LEFT EYE REDNESS AND DRAINAGE ONSET TODAY S/P MOWING cm10 HER LAWN. Coronavirus screen: Client denies travel out of the [place] in the last 14 days. At this time, the client does not indicate any symptoms associated with coronavirus-19. Ebola Screen: Patient denies travel to an Ebola-affected area in the 21 days before illness onset. No symptoms or risks identified at this time. Initial Sepsis Screen: Does the patient meet any 2 criteria? No. Patient's initial sepsis screen is negative. Does the patient have a suspected source of infection? No. Patient's initial sepsis screen is negative. Risk Assessment: Do you want to hurt yourself or someone else? Patient reports no desire to harm self or others. Onset of symptoms was February 02, 2024. 23:12 Method Of Arrival: Ambulatory cm10 23:12 Acuity: JONO 4 cm10 Triage Assessment: 23:14 General: Appears in no apparent distress. uncomfortable, Behavior is calm, cooperative. cm10 Pain: Complains of pain in left eye. EENT: Eyes are tearing on left eye. Neuro: No deficits noted. Level of Consciousness is awake, alert, obeys commands, Oriented to person, place, time, situation, Appropriate for age. Respiratory: No deficits noted. Airway is patent Respiratory effort is even, unlabored, Respiratory pattern is regular, symmetrical. Historical: - Allergies: 23:13 PENICILLINS; cm10 - Home Meds: 23:13 lisinopril Oral [Active]; Clonazepam Oral [Active]; cm10 - PMHx: 23:13 Anxiety; Hypertensive disorder; Migraine; cm10 - PSHx: 23:13 hysterectomy; cm10 - Immunization history:: Adult Immunizations up to date. - Infectious Disease History:: Denies. - Social history:: Smoking status: Patient denies any tobacco usage or history of. - Family history:: not pertinent. Screenin/29 00:30 [facility] ED Fall Risk Assessment (Adult) History of falling in the last 3 months, vc1 including since admission No falls in past 3 months (0 pts) Confusion or Disorientation No (0 pts) Intoxicated or Sedated No (0 pts) Impaired Gait No (0 pts) Mobility Assist Device Used No (0 pt) Altered Elimination No (0 pt) Score/Fall Risk Level 0 - 2 = Low Risk Oriented to surroundings, Maintained a safe environment, Educated pt \T\ family on fall prevention, incl call for assistance when getting out of bed. Abuse screen: Denies threats or abuse. Nutritional screening: No deficits noted. Tuberculosis screening: No symptoms or risk factors identified. Vital Signs: 02/01 23:12 BP 143 / 75; Pulse 74; Resp 18; Temp 97; Pulse Ox 96% on R/A; Weight 84.37 kg; Height 5 cm10 ft. 0 in. ; Pain 9/10; 23:12 Body Mass Index 36.33 (84.37 kg, 152.4 cm) cm10 23:12 Pain Scale: Adult cm10 ED Course: 22:26 Patient arrived in ED. jj6 23:13 Triage completed. cm10 23:15 Arm band placed on Patient placed in waiting room. cm10 23:32 Toro Randall MD is Attending Physician. [facility] 02/02 00:30 Patient has correct armband on for positive identification. Bed in low position. Pulse vc1 ox on. NIBP on. 01:32 Charity Mccormick RN is Primary Nurse. vc1 02:13 Alvarez Guzman MD is Referral Physician. [facility] 03:19 Assist provider with eye exam of left eye. using fluorescein stain, Performed by Toro Randall MD Dressed with eye patch Patient tolerated well. 03:20 Patient did not have IV access during this emergency room visit. vc1 Administered Medications: 02:44 Not Given (Duplicate Order): cyclopentolatedrops (1 %) 1 drops Ophthalmic once kaylynn 03:14 Not Given (Other Intervention Used): tobramycinointment (0.3 %) 1 application vc1 Ophthalmic once 03:14 Drug: [place] PO 10 mg-325 mg 1 tabs PO once Route: PO; vc1 03:15 Follow up: Response: No adverse reaction; Marked relief of symptoms vc1 03:14 Drug: Ondansetron Oral Disintegrating Tablet Oral Disintegrating Tablet 4 mg PO once vc1 Route: PO; 03:15 Follow up: Response: No adverse reaction; Marked relief of symptoms vc1 03:14 Drug: Cyclopentolate Ophthalmic Drops (1 %) 1 drops Ophthalmic once Route: Ophthalmic; vc1 Site: left eye; 03:15 Drug: Bacitracin-Polymyxin B Ophthalmic Ointment 1 application Ophthalmic once Route: vc1 Ophthalmic; Site: left eye; 03:17 Drug: Tetracaine Ophthalmic Drops 0.5 % 1 drops Ophthalmic once Route: Ophthalmic; vc1 Site: left eye; Medication: 03:18 VIS not applicable for this client. vc1 Outcome: 02:14 Discharge ordered by . kaylynn 03:19 Discharged to home ambulatory, vc1 03:19 Condition: good 03:19 Discharge instructions given to patient, Instructed on discharge instructions, follow up and referral plans. medication usage, Demonstrated understanding of instructions, follow-up care, medications, Prescriptions given X 2, 03:20 Patient left the ED. vc1 Signatures: Toro Randall MD MD cha Jeffries, Jennifer jj6 Charity Mccormick RN RN vc1 Michaelle Silva RN RN cm10
--- NOTE | 2024-02-03 02:14 | EDPHYS ---
Physician Documentation [facility] Name: Roxy Astorga Age: 53 yrs Sex: Female : 1970 Arrival Date: 02/02/2024 Time: 22:22 Bed 12 Private MD: ED Physician Toro Randall HPI: 02/02 02:07 This 53 yrs old Female presents to ER via Ambulatory with complaints of kaylynn Drainage From Eye, Redness of Eye. 02:07 The patient is experiencing burning, matting or discharge, pain, redness, tearing, The kaylynn patient sustained an abrasion, to the left eye, caused by debris. Onset: The symptoms/episode began/occurred yesterday. Duration: the symptoms are continuous. Aggravated by blinking, closing eye, opening eye, Alleviated by covering eye. Associated signs and symptoms: Pertinent positives: None. Pertinent negatives: None. Patient wears glasses. Severity of symptoms: At their worst the symptoms were moderate severe in the emergency department the symptoms are unchanged. The patient has not experienced similar symptoms in the past. Historical: - Allergies: 02/01 23:13 PENICILLINS; cm10 - Home Meds: 23:13 lisinopril Oral [Active]; Clonazepam Oral [Active]; cm10 - PMHx: 23:13 Anxiety; Hypertensive disorder; Migraine; cm10 - PSHx: 23:13 hysterectomy; cm10 - Immunization history:: Adult Immunizations up to date. - Infectious Disease History:: Denies. - Social history:: Smoking status: Patient denies any tobacco usage or history of. - Family history:: not pertinent. ROS: 02/02 02:07 Constitutional: Negative for fever, chills, and weight loss, ENT: Negative for injury, kaylynn pain, and discharge, Neck: Negative for injury, pain, and swelling, Cardiovascular: Negative for chest pain, palpitations, and edema, Respiratory: Negative for shortness of breath, cough, wheezing, and pleuritic chest pain, Abdomen/GI: Negative for abdominal pain, nausea, vomiting, diarrhea, and constipation, Back: Negative for injury and pain, : Negative for injury, bleeding, discharge, and swelling, MS/Extremity: Negative for injury and deformity, Skin: Negative for injury, rash, and discoloration, Neuro: Negative for headache, weakness, numbness, tingling, and seizure, Psych: Negative for depression, anxiety, suicide ideation, homicidal ideation, and hallucinations, Allergy/Immunology: Negative for hives, rash, and allergies, Endocrine: Negative for neck swelling, polydipsia, polyuria, polyphagia, and marked weight changes, Hematologic/Lymphatic: Negative for swollen nodes, abnormal bleeding, and unusual bruising, Eyes: Positive for foreign body sensation, injury or acute deformity, matting, pain, photophobia, redness, of the iris of left eye, Exam: 02:07 Constitutional: This is a well developed, well nourished patient who is awake, alert, kaylynn and in no acute distress. Head/Face: Normocephalic, atraumatic. ENT: Nares patent. No nasal discharge, no septal abnormalities noted. Tympanic membranes are normal and external auditory canals are clear. Oropharynx with no redness, swelling, or masses, exudates, or evidence of obstruction, uvula midline. Mucous membranes moist. Neck: Trachea midline, no thyromegaly or masses palpated, and no cervical lymphadenopathy. Supple, full range of motion without nuchal rigidity, or vertebral point tenderness. No Meningismus. Chest/axilla: Normal chest wall appearance and motion. Nontender with no deformity. No lesions are appreciated. Cardiovascular: Regular rate and rhythm with a normal S1 and S2. No gallops, murmurs, or rubs. Normal PMI, no JVD. No pulse deficits. Respiratory: Lungs have equal breath sounds bilaterally, clear to auscultation and percussion. No rales, rhonchi or wheezes noted. No increased work of breathing, no retractions or nasal flaring. Abdomen/GI: Soft, non-tender, with normal bowel sounds. No distension or tympany. No guarding or rebound. No evidence of tenderness throughout. Back: No spinal tenderness. No costovertebral tenderness. Full range of motion. Skin: Warm, dry with normal turgor. Normal color with no rashes, no lesions, and no evidence of cellulitis. MS/ Extremity: Pulses equal, no cyanosis. Neurovascular intact. Full, normal range of motion. Neuro: Awake and alert, GCS 15, oriented to person, place, time, and situation. Cranial nerves II-XII grossly intact. Motor strength 5/5 in all extremities. Sensory grossly intact. Cerebellar exam normal. Normal gait. 02:07 Eyes: Pupils: no acute changes, equal, round, and reactive to light and accomodation, Extraocular movements: intact throughout, Conjunctiva: injected, in the left eye, Corneas: abrasion, that is small, that is moderate sized, at 5 o'clock, Sclera: injected, Anterior chamber: normal, no hyphema, on appreciated narrow angle closure, in left eye, Lids and lashes: appear normal, on the left, Vital Signs: 02/01 23:12 BP 143 / 75; Pulse 74; Resp 18; Temp 97; Pulse Ox 96% on R/A; Weight 84.37 kg; Height 5 cm10 ft. 0 in. ; Pain 9/10; 23:12 Body Mass Index 36.33 (84.37 kg, 152.4 cm) cm10 23:12 Pain Scale: Adult cm10 Procedures: 02/02 02:10 Performed stained , fluorescence, inverted. [facility] MDM: 02/01 23:32 Patient medically screened. [facility] 02/02 02:10 Differential diagnosis: Corneal abrasion of Corneal ulcer of Foreign body in left eye. [facility] Ultraviolet keratitis in. Data reviewed: vital signs, nurses notes. Consideration of Admission/Observation Escalation of care including admission/observation considered. I considered the following discharge prescriptions or medication management in the emergency department Medications were administered in the Emergency Department. See MAR. Care significantly affected by the following chronic conditions: Hypertension, Obesity, anxiety, migraine. 02/02 01:33 Order name: Fluoresene Opth strip; Complete Time: 01:33 [facility] 02/02 02:07 Order name: Misc. Order: patch; Complete Time: 03:14 [facility] Administered Medications: 02:44 Not Given (Duplicate Order): cyclopentolatedrops (1 %) 1 drops Ophthalmic once [facility] 03:14 Not Given (Other Intervention Used): tobramycinointment (0.3 %) 1 application vc1 Ophthalmic once 03:14 Drug: [place] PO 10 mg-325 mg 1 tabs PO once Route: PO; vc1 03:15 Follow up: Response: No adverse reaction; Marked relief of symptoms vc1 03:14 Drug: Ondansetron Oral Disintegrating Tablet Oral Disintegrating Tablet 4 mg PO once vc1 Route: PO; 03:15 Follow up: Response: No adverse reaction; Marked relief of symptoms vc1 03:14 Drug: Cyclopentolate Ophthalmic Drops (1 %) 1 drops Ophthalmic once Route: Ophthalmic; vc1 Site: left eye; 03:15 Drug: Bacitracin-Polymyxin B Ophthalmic Ointment 1 application Ophthalmic once Route: vc1 Ophthalmic; Site: left eye; 03:17 Drug: Tetracaine Ophthalmic Drops 0.5 % 1 drops Ophthalmic once Route: Ophthalmic; vc1 Site: left eye; Disposition Summary: 02/03/24 02:14 Discharge Ordered Notes: Location: Home kaylynn Problem: new kaylynn Symptoms: have improved kaylynn Condition: Stable kaylynn Diagnosis - Injury of conjunctiva and corneal abrasion without foreign body kaylynn - Injury of conjunctiva and corneal abrasion without foreign body, left eye kaylynn Followup: kaylynn - With: Private Physician - When: 2 - 3 days - Reason: Recheck today's complaints, Re-evaluation by your physician Followup: kaylynn - With: Alvarez Guzman MD - When: 2 - 3 days - Reason: Recheck today's complaints, Re-evaluation by your physician Discharge Instructions: - Discharge Summary Sheet kaylynn - Corneal Abrasion kaylynn - Corneal Abrasion, [id number] [facility] Forms: - Medication Reconciliation Form kaylynn - Antibiotic Education kaylynn - Prescription Opioid Use kaylynn - Patient Portal Instructions [facility] - Leadership Thank You Letter [facility] Prescriptions: - Tobrex 0.3 % Ophthalmic ointment - instill 1 application OPHTHALMIC route every 4 hours for 7 days; 3.5 gram; [facility] Refills: 0, Product Selection Permitted - acetaminophen-codeine 300-30 mg Oral tablet - take 2 tablet ORAL route every 6 hours as needed for pain; 20 tablet; Refills: kaylynn 0, Product Selection Permitted Signatures: Toro Randall MD MD cha Calcote, Vanessa, RN RN vc1 Michaelle Silva RN RN cm10
[2024-02-03] MEDS ORDERED: ONDANSETRON 4 MG (ODT) TAB ONE (02:48)
[2024-02-03] MEDS ORDERED: HYDROCODONE/APAP 10/325 TAB ONE (02:48)
[2024-02-03] MEDS ORDERED: CYCLOPENTOLATE 2% OPTH 2 ML ONE (02:48)
[2024-02-03] MEDS ORDERED: NEOMYCIN/BAC/POLY OPTH 3.5GM ONE (02:55)
[2024-02-03] MEDS ORDERED: NEO/POLY/DEX OPTH 3.5 GM TUBE ONE (02:55)
[2024-02-03 03:44] VITALS: BP 143/75; TEMP 97; O2SAT 96
== END 2024-02-03 03:20 | disposition home or self-care (01) ==
LOC: ER 22:22
DX: S05.02XA Injury of conjunctiva and corneal abrasion without foreign body, left eye, initial encounter (principal); Z88.0 Allergy status to penicillin
CPT/HCPCS: 99284; Q0162